=== PATIENT | female | born 1960 | race Caucasian/White ===

== ENCOUNTER 2020-09-14 10:56 | Emergency (ER) | payer MEDICARE ==
[2020-09-14 11:28] VITALS: BP 127/79
[2020-09-14] MEDS ORDERED: BUFFERED LIDOCAINE 10 ML SYRINGE SUBQ STA (11:39)
[2020-09-14] MEDS ORDERED: BACITRACIN ZINC OINT 1 PACKET TOP STA (11:39)
[2020-09-14] MEDS ORDERED: cefTRIAXone 1 GM VIAL IM STA (11:43)
[2020-09-14] MEDS ORDERED: LIDOCAINE 1% 2 ML VIAL MC ONE (11:43)
--- NOTE | 2020-09-14 11:46 | ED Physician Documentation ---
History of Present Illness - Stated complaint Stated Complaint: LFT FINGER LAC - Chief complaint Chief Complaint: Trauma Ext - Additonal information Additional information: 60-year-old female presents to the emergency department with a left distal middle finger laceration cyst and just prior to arrival when her finger was slammed in a shop a door. The fat pad has a U-shaped laceration and is quite ecchymotic and swollen. Last tetanus 3 years ago. Patient's is right-hand dominant Review of Systems Constitutional: reports: Reviewed and negative Ears: reports: Reviewed and negative Nose: reports: Reviewed and negative Throat: reports: Reviewed and negative Cardiac: reports: Reviewed and negative Respiratory: reports: Reviewed and negative GI: reports: Abdominal Pain : reports: Reviewed and negative Skin: reports: Laceration (s) (left middle finger) Musculoskeletal: reports: Joint pain (left middle finger) Neurologic: reports: Reviewed and negative PD PAST MEDICAL HISTORY - Past Medical History Past Medical History: Yes Cardiovascular: Hypertension, Deep vein thrombosis, Pulmonary embolism Respiratory: None Endocrine/Autoimmune: None GI: None : None HEENT: None Psych: None Musculoskeletal: Osteoarthritis, Chronic back pain Derm: None - Past Surgical History Past Surgical History: Yes Ortho: Knee replacement, Arthroscopic surgery, Carpal Tunnel surgery, 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, 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 - Present Medications Home Medications: Ambulatory Orders Medication Instructions Recorded Confirmed Cholecalciferol (Vitamin D3) 4,000 units PO DAILY 06/29/16 06/29/16 [Vitamin D3] Citalopram [CeleXA] 20 mg PO DAILY 06/29/16 06/29/16 Gabapentin 1,200 mg PO TID 06/29/16 06/29/16 Gluc Smith/Chondro Smith A/Vit C/Mn 1 tab DAILY 06/29/16 06/29/16 [Glucosamine-Chondroitin Cap] Hydrocodone/Acetaminophen 1 - 2 tab PO QID PRN 06/29/16 06/29/16 [Hydrocodone-Acetamin 5-325 mg] Lisinopril 20 mg PO DAILY 06/29/16 06/29/16 Meloxicam 15 mg PO DAILY 06/29/16 06/29/16 Multivitamin [Multivitamins] 1 tab DAILY 06/29/16 06/29/16 Thyroid [[place] Thyroid] 60 mg PO DAILY 06/29/16 06/29/16 Ubidecarenone/Vitamin E Mixed 1 tab PO DAILY 06/29/16 06/29/16 [Xzl01-Quw E 100 mg-10 Unit Sfg] hydroCHLOROthiazide 25 mg PO DAILY 06/29/16 06/29/16 [Hydrochlorothiazide] traZODone [Desyrel] 50 mg PO QPM 06/29/16 06/29/16 Acetaminophen [Tylenol] 650 mg PO Q4HR PRN #0 tablet 06/30/16 Meloxicam [Mobic] 15 mg PO DAILY tablet 06/30/16 Pantoprazole [Protonix] 40 mg PO QDAC #30 tablet 06/30/16 Cephalexin [Keflex] 500 mg PO QID #27 capsule 09/14/20 - Allergies Allergies/Adverse Reactions: Allergies Allergy/AdvReac Type Severity Reaction Status Date / Time amoxicillin Allergy Rash Verified 09/14/20 11:34 meperidine [From Demerol] Allergy Emesis Verified 09/14/20 11:34 Sulfa (Sulfonamide Allergy Rash Verified 09/14/20 11:34 Antibiotics) - Social History Does the pt smoke?: No Smoking Status: Never smoker Does the pt drink ETOH?: No Does the pt have substance abuse?: No PD ED PE EXPANDED - General General: Alert, No acute distress - Extremities Extremities: Left finger(s) (left distal middle finger with 2.5 cm U shaped laceration fat pad. ecchymosis adn tenderness) Results - Vitals Vitals: Vital Signs - 24 hr 09/14/20 11:25 Temperature 36.5 C Heart Rate 91 Respiratory 16 Rate Blood Pressure 127/79 O2 Saturation 99 Oxygen O2 Source Room air - Rads (name of study) left finger Radiology: Final report received (Comminuted mildly displaced fracture of the distal tip of the third finger with associated soft tissue injury) Procedures - Laceration (location) left finger Length in cm: 2.5 Wound type: Curved Neurovascular status: Sensory intact, Motor intact Tendon involvement: Tendon intact Anesthesia: Lidocaine 1% Wound Preparation: Chlorhexadine, Irrigated copiously NS Skin layer closure: Nylon, Size #-0 - enter number (4), Sutures - enter # (7) Other: Patient tolerated well, No complications, Neurovascular intact, Tetanus UTD PD MEDICAL DECISION MAKING - ED course Complexity details: reviewed results, considered differential, d/w patient, d/w family ED course: 60-year-old female here with a left middle distal tip laceration sustained when she slammed her finger in a shop door.. There is an associated tuft fracture of the fingertip. Her tendon function is preserved. Will treat as open fracture. Given ceftriaxone here in the emergency department and will discharge with Keflex. Patient will be followed up with orthopedics. Case also discussed with Dr. Mao. Departure - Departure Disposition: 01 Home, Self Care Clinical Impression: Finger laceration Qualifiers: Encounter type: initial encounter Finger: middle finger Damage to nail status: without damage Foreign body presence: without foreign body Laterality: left Qualified Code(s): S61.213A - Laceration without foreign body of left middle finger without damage to nail, initial encounter Condition: Stable Record reviewed to determine appropriate education?: Yes Instructions: ED Laceration Hand Follow-Up: Chris Mao MD [Provider Admit Priv/Credential] - Within 3 Days Prescriptions: Cephalexin [Keflex] 500 mg PO QID #27 capsule Comments: Bernadette the sutures in your fingertip should be removed in 7 to 10 days. Unfortunately you do have a fracture of the distal tip of your finger. I would like you to follow-up with orthopedics for reevaluation within the next week. I would also like you to schedule wound care follow-up with your primary care doctor if you are not able to see Ortho within the next week. Please take the antibiotics as prescribed. If at any point you have concerns of infection which would include redness, swelling, milky drainage or increased pain please return to the emergency department. In 24 hours you may gently wash your finger with warm soap and water, apply any antibiotic ointment a bandage and then the splint.
--- NOTE | 2020-09-14 11:56 | XRAY Report ---
PROCEDURE: Finger(s) LT INDICATIONS: Trauma TECHNIQUE: AP hand, 2 views of the third finger(s) acquired. COMPARISON: None FINDINGS: Bones: There is a comminuted, mildly displaced fracture seen of the distal tip of the distal phalanx of the third finger. No intra-articular involvement is seen. No additional fractures can be seen. Age-appropriate degenerative changes are seen. Soft tissues: Associated soft tissue injury is seen involving the distal aspect of the third finger. No radiopaque foreign bodies are seen. IMPRESSION: Comminuted, mildly displaced fracture of the distal tip of the third finger, with associated soft tis arlyn injury. Reviewed by: Abdulkadir Alejandro MD on 09/14/2020 10:55 AM SERAFIN Approved by: Abdulkadir Alejandro MD on 09/14/2020 10:55 AM SERAFIN Station ID: [id number]
== END 2020-09-14 12:37 | disposition home or self-care (01) ==
LOC: ED 10:56
DX: S62.633B Displaced fracture of distal phalanx of left middle finger, initial encounter for open fracture (principal); W23.0XXA Caught, crushed, jammed, or pinched between moving objects, initial encounter; I10 Essential (primary) hypertension
CPT/HCPCS: 12001; 73140; 96372; 99283; A9270; 12011

== ENCOUNTER 2020-10-29 17:17 | Outpatient (CLI) | payer MEDICARE ==
--- NOTE | 2020-10-29 15:27 | XRAY Report ---
PROCEDURE: Finger(s) LT INDICATIONS: NONDISPLACED FX OF DISTAL PHALANX OF LEFT MIDDLE FINGER TECHNIQUE: AP hand, 2 views of the left third finger(s) acquired. COMPARISON: 09/14/2020. FINDINGS: Bones: Comminuted fracture of the tuft of the left third distal phalange is not significantly changed compared to prior examination. Osteophytic degenerative changes in the hand and wrist are stable. Soft tissues: No suspicious soft tissue calcifications. IMPRESSION: Stable, comminuted, mildly displaced third distal phalange fracture. Reviewed by: Bertha Camacho MD, PhD on 10/29/2020 3:26 PM PST Approved by: Bertha Camacho MD, PhD on 10/29/2020 3:26 PM PST Station ID: [id number]
== END 2020-10-29 23:59 | disposition home or self-care (01) ==
LOC: DI.N 17:17
PROVIDERS: ATTEND Physician Assistant
DX: S62.633A Displaced fracture of distal phalanx of left middle finger, initial encounter for closed fracture (principal)

== ENCOUNTER 2021-12-12 17:44 | Emergency (ER) | payer MEDICARE ==
--- NOTE | 2021-12-12 18:10 | ED Physician Documentation ---
History of Present Illness - Stated complaint Stated Complaint: FALL, RIGHT HIP & ELBOW PX - Chief complaint Chief Complaint: Trauma Ext - History obtained from History obtained from: Patient - History of Present Illness Timing: Today Pain level max: 8 Pain level now: 8 - Additonal information Additional information: Patient is a 61-year-old female who presents to the emergency department with right elbow and right hip pain after a fall down the stairs earlier today. Worse with movement, better with rest. The fall occurred about 10 hours prior to arrival. She has been ambulating and using the arm freely throughout the day. Review of Systems Ten Systems: 10 systems reviewed and negative Constitutional: denies: Fever, Chills GI: denies: Vomiting, Diarrhea Skin: denies: Rash Musculoskeletal: denies: Neck pain, Back pain Neurologic: denies: Focal weakness, Numbness, Confused, Head injury, LOC PD PAST MEDICAL HISTORY - Past Medical History Cardiovascular: Hypertension, Deep vein thrombosis, Pulmonary embolism Respiratory: None Endocrine/Autoimmune: None GI: None : None HEENT: None Psych: None Musculoskeletal: Osteoarthritis, Chronic back pain Derm: None - Past Surgical History Past Surgical History: Yes Ortho: Knee replacement, Arthroscopic surgery, Carpal Tunnel surgery, 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, 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 - Present Medications Home Medications: Ambulatory Orders Medication Instructions Recorded Confirmed Cholecalciferol (Vitamin D3) 4,000 units PO DAILY 06/29/16 06/29/16 [Vitamin D3] Citalopram [CeleXA] 20 mg PO DAILY 06/29/16 06/29/16 Gabapentin 1,200 mg PO TID 06/29/16 06/29/16 Gluc Smith/Chondro Smith A/Vit C/Mn 1 tab DAILY 06/29/16 06/29/16 [Glucosamine-Chondroitin Cap] Hydrocodone/Acetaminophen 1 - 2 tab PO QID PRN 06/29/16 06/29/16 [Hydrocodone-Acetamin 5-325 mg] Lisinopril 20 mg PO DAILY 06/29/16 06/29/16 Meloxicam 15 mg PO DAILY 06/29/16 06/29/16 Multivitamin [Multivitamins] 1 tab DAILY 06/29/16 06/29/16 Thyroid [[place] Thyroid] 60 mg PO DAILY 06/29/16 06/29/16 Ubidecarenone/Vitamin E Mixed 1 tab PO DAILY 06/29/16 06/29/16 [Szq62-Ude E 100 mg-10 Unit Sfg] hydroCHLOROthiazide 25 mg PO DAILY 06/29/16 06/29/16 [Hydrochlorothiazide] traZODone [Desyrel] 50 mg PO QPM 06/29/16 06/29/16 Acetaminophen [Tylenol] 650 mg PO Q4HR PRN #0 tablet 06/30/16 Meloxicam [Mobic] 15 mg PO DAILY tablet 06/30/16 Pantoprazole [Protonix] 40 mg PO QDAC #30 tablet 06/30/16 cephALEXin [Keflex] 500 mg PO QID #27 capsule 09/14/20 - Allergies Allergies/Adverse Reactions: Allergies Allergy/AdvReac Type Severity Reaction Status Date / Time amoxicillin Allergy Rash Verified 12/12/21 17:47 meperidine [From Demerol] Allergy Emesis Verified 12/12/21 17:47 Sulfa (Sulfonamide Allergy Rash Verified 12/12/21 17:47 Antibiotics) - Social History Does the pt smoke?: No Smoking Status: Never smoker Does the pt drink ETOH?: No Does the pt have substance abuse?: No PD ED PE NORMAL - Vitals Vital signs reviewed: Yes - General General: Alert and oriented X 3, No acute distress - HEENT HEENT: Atraumatic, PERRL, Moist mucous membranes, Pharynx benign - Neck Neck: Supple, no meningeal sign, No bony TTP, C-Spine cleared by NEXUS criteria - Cardiac Cardiac: RRR - Respiratory Respiratory: No respiratory distress, Clear bilaterally - Abdomen Abdomen: Soft, Non tender, Non distended - Back Back: No spinal TTP - Derm Derm: Warm and dry - Extremities Extremities: Other - Neuro Neuro: Alert and oriented X 3 - Psych Psych: Normal mood, Normal affect - Free text exam Free text exam: Tender to palpation over the right hip above the greater trochanter. In the soft tissue area. Also tender palpation over the right elbow, olecranon area with an abrasion and bruising present. Full range of motion of the elbow including pronation and supination. Neurovascularly intact. Full range of motion of the right hip as well. NVI Results - Vitals Vitals: Vital Signs - 24 hr 12/12/21 12/12/21 17:47 19:30 Temperature 36.5 C Heart Rate 80 75 Respiratory 16 17 Rate Blood Pressure 130/76 120/73 O2 Saturation 98 100 Oxygen O2 Source Room air - Rads (name of study) R elbow xray Radiology: Final report received, EMP read contemporaneously, See rad report R hip xray Radiology: Final report received, EMP read contemporaneously, See rad report PD MEDICAL DECISION MAKING - ED course Complexity details: reviewed results, re-evaluated patient, considered differential, d/w patient ED course: 61 year old female status post a ground-level fall several hours ago. No acute findings on x-ray of the hip. Elbow x-ray shows a small joint effusion, possible nondisplaced fracture. Patient declines a splint. She will follow up with her doctor in 1 week for repeat evaluation and repeat x-ray if she is still having symptoms. Neurovascularly intact. Ambulating without difficulty. Has oxycodone at home for pain. Patient counseled regarding signs and symptoms for which I believe and urgent re-evaluation would be necessary. Patient with good understanding of and agreement to plan and is comfortable going home at this time This document was made in part using voice recognition software. While efforts are made to proofread this document, sound alike and grammatical errors may occur. elbow xray: 1. No displaced fracture or dislocation. 2. Small joint effusion suspicious for possible nondisplaced fracture. Recommend a repeat study in 7-10 days if clinical concern persists. IMPRESSION: 1. No displaced fracture or dislocation. 2. Moderate axial joint space narrowing with subchondral sclerosis in the right hip. Departure - Departure Disposition: 01 Home, Self Care Clinical Impression: Effusion, right elbow Contusion of elbow, right Qualifiers: Encounter type: initial encounter Qualified Code(s): S50.01XA - Contusion of right elbow, initial encounter Contusion of right hip Qualifiers: Encounter type: initial encounter Qualified Code(s): S70.01XA - Contusion of right hip, initial encounter Condition: Good Instructions: ED Contusion Elbow, ED Contusion Hip Follow-Up: HARLEY DINERO DO [Primary Care Provider] - Within 1 week Comments: Please follow-up with your doctor in 1 week for repeat evaluation. There is a small effusion on your right elbow x-ray. This could be due to an occult fracture, if you are still having symptoms in 1 week, would recommend repeat x- rays. Your hip x-ray also does not show any acute fractures. Discharge Date/Time: 12/12/21 19:37
--- NOTE | 2021-12-12 18:45 | XRAY Report ---
PROCEDURE: Elbow 3 View RT INDICATIONS: fall, pain TECHNIQUE: 3 views of the elbow were acquired. COMPARISON: None. FINDINGS: Bones: No displaced fractures or dislocations. There is osteopenia. No suspicious bony lesions. Soft tissues: There is a small elbow joint effusion. No suspicious soft tissue calcifications. IMPRESSION: 1. No displaced fracture or dislocation. 2. Small joint effusion suspicious for possible nondisplaced fracture. Recommend a repeat study in 7- 10 days if clinical concern persists. Reviewed by: Richy Hargrove MD on 12/12/2021 6:43 PM PST Approved by: Richy Hargrove MD on 12/12/2021 6:43 PM PST Station ID: [id number]
--- NOTE | 2021-12-12 18:47 | XRAY Report ---
PROCEDURE: Hip w/Pelvis 2-3V RT INDICATIONS: fall, pain TECHNIQUE: AP pelvis with AP and lateral views of the right hip. COMPARISON: None. FINDINGS: Bones: No displaced fractures or dislocations. Pelvic ring appears intact. There is moderate axial joint space narrowing in the right hip with subchondral sclerosis. No suspicious bony lesions. Soft tissues: The visualized bowel gas pattern is normal. No suspicious soft tissue calcifications. IMPRESSION: 1. No displaced fracture or dislocation. 2. Moderate axial joint space narrowing with subchondral sclerosis in the right hip. Reviewed by: Richy Hargrove MD on 12/12/2021 6:45 PM PST Approved by: Richy Hargrove MD on 12/12/2021 6:45 PM PST Station ID: [id number]
[2021-12-12 19:31] VITALS: BP 120/73
== END 2021-12-12 19:37 | disposition home or self-care (01) ==
LOC: ED 17:44
DX: S50.01XA Contusion of right elbow, initial encounter (principal); S70.01XA Contusion of right hip, initial encounter; W10.9XXA Fall (on) (from) unspecified stairs and steps, initial encounter; I10 Essential (primary) hypertension; Z86.718 Personal history of other venous thrombosis and embolism; M25.421 Effusion, right elbow
CPT/HCPCS: 99282; 99284

== ENCOUNTER 2024-05-07 19:39 | Outpatient (CLI) | payer MEDICARE ==
--- NOTE | 2024-05-07 20:42 | Ultrasound Report ---
PROCEDURE: Duplex Ext Veins Right INDICATIONS: SWELLING R LOWER LIMB TECHNIQUE: Real-time imaging, as well as color and pulse Doppler interrogation, were performed of the lower extr emity deep veins from the inguinal ligament to the popliteal fossa. Attempted visualization of the ca lf veins was performed. COMPARISON: None. FINDINGS: The deep veins are normally compressible, and free of intraluminal thrombus. Color and pu lse Doppler demonstrate normal phasic intraluminal flow. There is normal augmentation response to di stal compression maneuver. Superficial venous thrombosis involving the right greater saphenous vein from the level of the mid thigh through the proximal calf. This is nonocclusive and does not extend i n close proximity to the junction of the greater saphenous vein and femoral vein. The calf veins were not well visualized. IMPRESSION: No deep venous thrombosis of the visualized lower extremity. Nonocclusive superficial thrombophlebitis involving the right greater saphenous vein from the level o f the mid thigh to the proximal calf. Reviewed by: Doug Rowe MD on 05/07/2024 8:41 PM PDT Approved by: Doug Rowe MD on 05/07/2024 8:41 PM PDT Station ID: [id number]
== END 2024-05-07 19:40 | disposition home or self-care (01) ==
LOC: DI 19:39
PROVIDERS: ATTEND Physician Assistant Medical
DX: I80.01 Phlebitis and thrombophlebitis of superficial vessels of right lower extremity (principal)

== ENCOUNTER 2024-07-17 13:00 | Outpatient (CLI) | payer MEDICARE | END 2024-07-17 13:15 | disposition home or self-care (01) | LOC: LAB.N 13:00 | PROVIDERS: ATTEND Physician Assistant | DX: R30.0 Dysuria (principal) | CPT/HCPCS: 87086 ==